=== PATIENT | female | born 1930 | race Caucasian/White ===

== ENCOUNTER → 2017-07-27 | Outpatient (CLI) | payer MEDICARE, BC | END | disposition home or self-care (01) | LOC: ROC 14:00 → CYBERKNIFE 07-28 08:52 → EDSTATUS 07-28 13:51 | PROVIDERS: ATTEND Radiology Radiation Oncology | DX: Z08 Encounter for follow-up examination after completed treatment for malignant neoplasm (principal); C79.31 Secondary malignant neoplasm of brain; K21.9 Gastro-esophageal reflux disease without esophagitis; E78.5 Hyperlipidemia, unspecified; Z85.038 Personal history of other malignant neoplasm of large intestine | CPT/HCPCS: 77295; 77300; 77334; 77370; G0463 ==

== ENCOUNTER → 2017-07-28 | Outpatient (CLI) | payer MEDICARE, BC ==
[~2017-07-28] MED LIST: GADOBUTROL 7.5 MMOL/7.5 ML PFS ONE
== END ==
LOC: CFH 12:07
PROVIDERS: ATTEND Radiology Radiation Oncology
DX: C79.31 Secondary malignant neoplasm of brain (principal); I67.82 Cerebral ischemia; R90.82 White matter disease, unspecified; R60.9 Edema, unspecified; Z86.73 Personal history of transient ischemic attack (TIA), and cerebral infarction without residual deficits
CPT/HCPCS: 70553; A9585

== ENCOUNTER → 2017-09-20 | Outpatient (CLI) | payer MEDICARE, BC | END | disposition home or self-care (01) | LOC: ROC 07:54 | PROVIDERS: ATTEND Radiology Radiation Oncology | DX: C79.31 Secondary malignant neoplasm of brain (principal); C34.92 Malignant neoplasm of unspecified part of left bronchus or lung | CPT/HCPCS: G0463 ==